=== PATIENT | male | born 1980 | race American Indian/Alaskan Native ===

== ENCOUNTER 2018-06-19 07:07 | Day surgery (SDC) | payer OTHER ==
[~2018-06-19 07:07] MED LIST: Lactated Ringers 1,000 ML IV SCH; Sodium Chloride 0.9% 10 ML Syringe FLUSH PRN; ceFAZolin 1 GM in Premix Bag 1 BAG IV ONE
[2018-06-19] MEDS ORDERED: Ketorolac 30 MG/ML SDV IVPUSH ONE (07:08)
[2018-06-19] MEDS ORDERED: Propofol 200 MG/20 ML SDV IV ONE (07:08)
[2018-06-19] MEDS ORDERED: Dexamethasone 4 MG/ML SDV IV ONE (07:08)
[2018-06-19] MEDS ORDERED: Ondansetron 4 MG/2 ML SDV IV ONE (07:08)
[2018-06-19] MEDS ORDERED: Midazolam 1 MG/ML 2 ML SDV IV ONE (07:08)
[2018-06-19] MEDS ORDERED: fentaNYL 100 MCG/2 ML SDV IV ONE (07:08)
[2018-06-19] MEDS ORDERED: Lactated Ringers 1,000 ML IV ONE (07:08)
[2018-06-19] MEDS ORDERED: Lidocaine 1% 30 ML SDV ONE (07:54)
[2018-06-19] MEDS ORDERED: Bupivacaine 0.5% 30 ML SDV ONE (07:54)
[2018-06-19] MEDS ORDERED: ceFAZolin 2 GM in Premix Bag 1 BAG IV ONE (08:26)
[2018-06-19] MEDS ORDERED: Lidocaine 1% 30 ML SDV INJECT ONE ×5 (08:47→14:14)
[2018-06-19] MEDS ORDERED: Bupivacaine 0.5% 30 ML SDV INJECT ONE ×5 (08:47→14:14)
[2018-06-19] MEDS ORDERED: Acetaminophen/oxyCODONE 325-5 MG Tab PO PRN (10:13)
--- NOTE | 2018-06-19 10:18 | PCM.OPNOTE ---
- General Post-Op/Procedure Note Date of Surgery/Procedure: 06/19/18 Operative Procedure(s): right foot open plantar fascia release, right foot one through five toenail avulsions, left foot 1,2,5 avulsions. Pre Op Diagnosis: right foot plantar fasciiits, fungal toenails b/l feet Post-Op Diagnosis: haresh Anesthesia Technique: Local, MAC Primary Surgeon: Judy Madera Anesthesia Provider: Israel Salas EBL in mLs: 10 Complications: none Condition: Good Free Text/Narrative:: Intake & Output 06/18/18 06/19/18 06/19/18 22:59 06:59 14:59 Intake Total 50 Balance 50 Pt tolerated procedure well and was transported to recovery with vascular status intact to b/l feet. Well padded L&U splint applied with foot in 90.
--- NOTE | 2018-06-20 11:10 | OR ---
DATE: 06/19/2018 PREOPERATIVE DIAGNOSES: 1. Right foot plantar fasciitis. 2. Painful onychomycosis, bilateral feet. POSTOPERATIVE DIAGNOSES: 1. Right foot plantar fasciitis. 2. Painful onychomycosis, bilateral feet. PROCEDURES PERFORMED: 1. Right foot open plantar fascia release. 2. Toenail avulsion of right foot digits 1 through 5 and left foot digits 1, 2, and 5. ANESTHESIA: Local MAC with preoperative local block of 10 mL of 1:1 mixture of 1% lidocaine plain and 0.5% Marcaine plain. TOURNIQUET TIME: 32 minutes of pneumatic ankle tourniquet. ESTIMATED BLOOD LOSS: Minimal. SPECIMEN: None. COMPLICATIONS: None. INDICATIONS: Gabriel is a 38-year-old male who presents for right heel pain and also painful toenails. I have been seeing him for many months for the heel pain. We have tried 2 rounds of cortisone injection, also custom orthotics, CAM boot immobilization, and physical therapy. He reports the heel is very painful again after the last injection. It started a few weeks ago and it is very bad where he can hardly walk on it again. He has been doing the stretching exercises and also wearing the night splint. He has been taking naproxen. He has painful toenails on bilateral feet that are thickened and has tried some antifungals with no relief. X-rays of the right reveals no heel spur, no signs of fracture. The patient voiced a good understanding of proposed procedure and possible complications, and elects to have surgery at this time. DESCRIPTION OF PROCEDURE: The patient was taken to the operating room lying in supine position. After adequate anesthesia induction as described above, the right foot was prepped and draped in usual sterile fashion. A pneumatic ankle tourniquet was inflated to 225 mmHg. Attention was then directed to the instep of the right foot just distal to the calcaneus, where an approximately 4 cm linear incision was made on the plantar aspect of the foot to gain access to the plantar fascia band. Sharp and blunt dissections were performed down to the level of the plantar fascia. The medial and lateral band of the plantar fascia was transected, and an approximately 1 cm2 section of the band was removed from the foot. Inspection of the area revealed no further tightness of the plantar fascia in this area. This site was then irrigated with copious amounts of sterile saline. Deep closure was completed with 3-0 Vicryl and skin closure was completed with 4-0 nylon. Attention was directed to the toenails on bilateral feet after a sterile dressing was applied to the right foot with Xeroform, fluffs, Kerlix, and Webril and a posterior L and U splint was applied. The foot was in 90 degrees. Attention was then directed to the toenails, which were prepped and all 1 through 5 nails on the right foot were freed with a Marshall elevator and removed with a hemostat. The nail beds were cleaned. This was also done to digits 1, 2, and 5 on the left foot. The areas were irrigated with copious amounts of sterile saline. Gauze, Xeroform, and Coban dressing were applied to the toenails. They were given postoperative care instructions for the toenails. The patient tolerated procedure and anesthesia well and left the operating room for recovery with vital signs stable in good condition with vascular status intact to bilateral feet. The patient was then discharged to home once he met hospital discharge requirements. [facility] /[id number]
== END 2018-06-19 11:10 | disposition home or self-care (01) ==
LOC: DL.SDS 07:07
PROVIDERS: ATTEND Podiatrist
DX: M72.2 Plantar fascial fibromatosis (principal); B35.1 Tinea unguium; I10 Essential (primary) hypertension; E11.9 Type 2 diabetes mellitus without complications; E66.9 Obesity, unspecified; Z68.37 Body mass index [BMI] 37.0-37.9, adult; Z79.84 Long term (current) use of oral hypoglycemic drugs; Z79.899 Other long term (current) drug therapy; Z87.891 Personal history of nicotine dependence
CPT/HCPCS: 11730; 11732; 28060; J0690; J1100; J1885; J2001; J2250; J2405; J2704; J3010; J3490; J7120